=== PATIENT | male | born 1960 | race African-American/Black ===

== ENCOUNTER 2018-10-12 09:17 | Emergency (ER) | payer MEDICARE ==
--- NOTE | 2018-10-12 10:05 | RAD ---
F3 views of the right great toe INDICATION: History of chronic wound to the tip of the right great toe Comparison prior exam dated 08/09/2018 IMPRESSION: There is been interval development of a comminuted distal tuft fracture of the right grea t toe. Soft tissue wound within overlies the fracture site. No additional acute osseous abnormality i s evident. There is soft tissue swelling of the right great toe.
[2018-10-12] MEDS ORDERED: Fentanyl 100 MCG/2 ML VIAL ONE (10:30)
[2018-10-12] MEDS ORDERED: Sodium Chloride 0.9% 100 ML ONE (10:30)
[2018-10-12] MEDS ORDERED: Piperacillin/Tazobactam 4.5 GM VIAL ONE (10:35)
[2018-10-12 10:43] LABS: #Basophils 0.2 thou/uL (0.0-0.2); #Eosinphils 0.4 thou/uL (0.0-0.7); #Lymphocytes 2.2 thou/uL (1.20-3.40); #Monocytes 0.7 thou/uL (0.11-0.59); #Neutrophils 6.3 thou/uL (1.40-6.50); %Basophils 1.6 % (0.0-1.0); %Eosinophils 4.5 % (0.0-10.0); %Lymphocytes 22.7 % (21.0-51.0); %Monocytes 7.1 % (0.0-10.0); Hemoglobin 10.8 g/dL (14.0-18.0); Mean Corpuscular HGB CONC 32.2 g/dL (32.0-36.0); Mean Corpuscular Hemoglobin 31.2 pg (27.0-31.0); Mean Corpuscular Volume 96.9 fL (78.0-98.0); Mean Platelet Volume 6.1 fL (7.4-10.4); Platelet Count 542 thou/uL (130-400); RBC Distribution Width 11.8 % (11.5-14.5); Red Blood Cell (RBC) Count 3.47 mill/uL (4.70-6.10); White Blood Cell (WBC) Count 9.8 thou/uL (4.8-10.8)
[2018-10-12 10:57] LABS: ALT (SGPT) 19 U/L (8-55); AST (SGOT) 21 U/L (5-34); Albumin 4.3 g/dL (3.5-5.0); Alkaline Phosphatase 100 U/L (40-150); Anion Gap 16 mmol/L (10-20); BUN (Urea Nitrogen) 47 mg/dL (8.4-25.7); Bilirubin, Total 0.7 mg/dL (0.2-1.2); Calc. Creatinine Clearance 0 mL/min (70-130); Calcium 10.3 mg/dL (7.8-10.44); Carbon Dioxide 22 mmol/L (22-29); Chloride 102 mmol/L (98-107); Estimated GFR-MDRD 46; Glucose 187 mg/dL (70-105); Potassium 5.5 mmol/L (3.5-5.1); Protein, Total 8.3 g/dL (6.0-8.3); Sodium 134 mmol/L (136-145)
== END 2018-10-12 10:44 | disposition short-term general hospital (02) ==
LOC: BURERS 09:17
DX: M86.9 Osteomyelitis, unspecified (principal); E11.40 Type 2 diabetes mellitus with diabetic neuropathy, unspecified; E78.5 Hyperlipidemia, unspecified; I10 Essential (primary) hypertension; F32.9 Major depressive disorder, single episode, unspecified
CPT/HCPCS: 36415; 80053; 85025; 87040; 96374; 96375; J2543; J3010; J7050

== ENCOUNTER 2021-07-26 09:04 | Emergency (ER) | payer OTHER, MEDICARE ==
[2021-07-26 09:37] LABS: #Basophils 0.2 thou/uL (0.0-0.2); #Eosinphils 0.2 thou/uL (0.0-0.7); #Lymphocytes 2.3 thou/uL (1.20-3.40); #Monocytes 0.7 thou/uL (0.11-0.59); #Neutrophils 6.4 thou/uL (1.40-6.50); %Basophils 1.9 % (0.0-1.0); %Eosinophils 2.3 % (0.0-10.0); %Lymphocytes 23.5 % (21.0-51.0); %Monocytes 7.3 % (0.0-10.0); Hemoglobin 12.8 g/dL (14.0-18.0); Mean Corpuscular HGB CONC 33.2 g/dL (32.0-36.0); Mean Corpuscular Hemoglobin 31.5 pg (27.0-31.0); Mean Corpuscular Volume 94.8 fL (78.0-98.0); Mean Platelet Volume 6.2 fL (7.4-10.4); Platelet Count 507 thou/uL (130-400); RBC Distribution Width 11.6 % (11.5-14.5); Red Blood Cell (RBC) Count 4.07 mill/uL (4.70-6.10); White Blood Cell (WBC) Count 9.9 thou/uL (4.8-10.8)
[2021-07-26] MEDS ORDERED: Meclizine HCl 25 MG TAB ONE (09:38)
[2021-07-26 09:51] LABS: ALT (SGPT) 24 U/L (8-55); AST (SGOT) 14 U/L (5-34); Albumin 3.9 g/dL (3.4-4.8); Alkaline Phosphatase 83 U/L (40-110); Anion Gap 13 mmol/L (10-20); BUN (Urea Nitrogen) 15 mg/dL (8.4-25.7); Bilirubin, Total 0.5 mg/dL (0.2-1.2); Calc. Creatinine Clearance 0 mL/min (70-130); Calcium 9.8 mg/dL (7.8-10.44); Carbon Dioxide 27 mmol/L (23-31); Chloride 102 mmol/L (98-107); Globulin 3.7 g/dL (2.4-3.5); Glucose 291 mg/dL (80-115); Potassium 4.4 mmol/L (3.5-5.1); Protein, Total 7.6 g/dL (5.8-8.1); Sodium 138 mmol/L (136-145)
[2021-07-26] MEDS ORDERED: Ibuprofen 200 MG TAB ONE (10:04)
[2021-07-26] MEDS ORDERED: Lisinopril 20 MG TAB ONE (10:04)
[2021-07-26 11:03] LABS: Bilirubin Negative (Negative); Blood, Urine Negative (Negative); Clarity Clear (Clear); Glucose, Urine (Dipstick) 500 mg/dL (Negative); Ketone, Urine Negative (Negative); Leukocyte Negative (Negative); Nitrite Negative (Negative); Protein, Urine (Dipstick) Negative (Neg-Trace); pH, Urine 7.5 (5.0-9.0)
[2021-07-26 11:12] LABS: Amphetamine Detected (NotDetected); Cocaine Metabolite Screen Not Detected (NotDetected); Methamphetamine Detected (NotDetected); Opiate Screen Not Detected (NotDetected); Phencyclidine (PCP) Not Detected (NotDetected); THC/Cannabinoid Screen Not Detected (NotDetected)
[2021-07-26 11:13] LABS: Barbiturates Screen Not Detected (NotDetected); Benzodiazepine Screen Not Detected (NotDetected); Medtox Control Line Valid? VALID (VALID); Methadone Not Detected (NotDetected); Oxycodone Screen Not Detected (NotDetected); Tricyclic Screen Not Detected (NotDetected)
== END 2021-07-26 11:52 | disposition home or self-care (01) ==
LOC: BURERS 09:04
DX: S70.02XA Contusion of left hip, initial encounter (principal); H81.10 Benign paroxysmal vertigo, unspecified ear; I10 Essential (primary) hypertension; F15.10 Other stimulant abuse, uncomplicated; H65.93 Unspecified nonsuppurative otitis media, bilateral; W01.0XXA Fall on same level from slipping, tripping and stumbling without subsequent striking against object, initial encounter
CPT/HCPCS: 80053; 80306; 81003; 85025; 99284